=== PATIENT | male | born 1990 | race Caucasian/White ===

== ENCOUNTER 2019-12-12 03:17 | Emergency (ER) | payer MEDICAID ==
[~2019-12-12] VITALS: Ht 182.9 cm; Wt 72.7 kg
[2019-12-12 03:24] VITALS: BP 152/79
--- NOTE | 2019-12-12 03:51 | NUR ---
PT TO [facility]IVE [facility] HE REPORTS HE HAS BEEN STAYING THERE.
== END 2019-12-12 03:57 | disposition home or self-care (01) ==
LOC: EDBD 03:17 → ER 03:17
DX: F41.9 Anxiety disorder, unspecified (principal); Z59.0 Homelessness
CPT/HCPCS: 99283

== ENCOUNTER 2019-12-13 10:15 | Emergency (ER) | payer MEDICAID ==
[~2019-12-13] VITALS: Ht 182.9 cm; Wt 76.1 kg
[2019-12-13] MEDS ORDERED: LORazepam 2 mg/ml vial IV ONE (10:30)
[2019-12-13] MEDS ORDERED: haloperidol lactate 5mg/ml inj IM ONE (10:30)
[2019-12-13] MEDS ORDERED: normal saline 1000ML IV soln IVB ONE (10:30)
[2019-12-13 10:43] LABS: CLARITY,URINE SLIGHTLY CLOUDY (Clear); COLOR,URINE YELLOW (Yellow); GLUCOSE, URINE NEGATIVE (Neg); KETONES,URINE NEGATIVE (Neg); LEUKOCYTE ESTERASE ,URINE NEGATIVE (Neg); NITRITES, URINE NEGATIVE (Neg); OCCULT BLOOD,URINE LARGE (Neg); PROTEIN,URINE TRACE mg/dl (Neg)
[2019-12-13 10:48] LABS: UA COLLECTION TYPE VOIDED
[2019-12-13 10:53] LABS: URINE AMPHETAMINE SCREEN POSITIVE (Neg); URINE BARBITUATE SCREEN NEGATIVE (Neg); URINE BENZODIAZEPINES SCREEN NEGATIVE (Neg); URINE CANNABINOID SCREEN NEGATIVE (Neg); URINE COCAINE SCREEN NEGATIVE (Neg); URINE METHADONE SCREEN NEGATIVE (Neg); URINE OPIATE SCREEN POSITIVE (Neg); URINE PHENCYCLIDINE SCREEN NEGATIVE (Neg)
[2019-12-13 10:55] LABS: RBC,URINE TNTC /HPF (0-2)
[2019-12-13 10:56] LABS: BACTERIA,URINE NONE SEEN /HPF (Neg); MUCUS STRANDS FEW /LPF (Neg); SQUAMOUS EPITHELIAL CELL,UR FEW /LPF (FEW)
[2019-12-13 11:04] LABS: BASOPHILS % (AUTO) 0.4 % (0-1); EOSINOPHILS # (AUTO) 0.1 X10'3 (0-0.9); EOSINOPHILS % (AUTO) 0.6 % (0-6); HEMATOCRIT 35.5 % (42.0-52.0); HEMOGLOBIN 11.5 g/dl (14.0-17.9); LYMPHOCYTES # (AUTO) 3.1 X10'3 (1.1-4.8); LYMPHOCYTES % (AUTO) 33.1 % (21-51); MEAN CORPUSCULAR HEMOGLOBIN 23.4 PG (27.0-31.0); MEAN CORPUSCULAR HGB CONC 32.3 g/dL (33.0-36.5); MEAN CORPUSCULAR VOLUME 72.3 FL (78-98); MEAN PLATELET VOLUME 7.6 FL (7.4-10.4); MONOCYTES # (AUTO) 1.3 X10'3 (0-0.9); NEUTROPHILS # (AUTO) 4.8 X10'3 (1.8-7.7); NEUTROPHILS % (AUTO) 51.9 % (42-75); PLATELET COUNT 313 X10'3 (140-440); RED BLOOD COUNT 4.91 X10'6 (4.70-6.10); WHITE BLOOD COUNT 9.4 X10'3 (4.5-11.0)
[2019-12-13 11:22] LABS: ALANINE AMINOTRANSFERASE 572 U/L (12-78); ALBUMIN 3.8 G/DL (3.4-5.0); ALBUMIN/GLOBULIN RATIO 0.8 (1.1-1.5); ALKALINE PHOSPHATASE 132 IU/L (46-116); ANION GAP 11 (8-16); ASPARTATE AMINO TRANSFERASE 241 U/L (10-37); BILIRUBIN,TOTAL 0.5 MG/DL (0.1-1.0); BLOOD UREA NITROGEN 15 MG/DL (7-18); BUN/CREATININE RATIO 17.4 (5.4-32.0); CHLORIDE 104 MMOL/L (99-107); CREATININE 0.86 MG/DL (0.60-1.10); POTASSIUM 3.1 MMOL/L (3.5-5.1); SODIUM 140 MMOL/L (135-145); TOTAL CARBON DIOXIDE 25.5 MMOL/L (24-32); TOTAL PROTEIN 8.7 G/DL (6.4-8.2); eGFR > 90 ML/MIN
[2019-12-13 11:24] LABS: ETHANOL 0.044 GM/DL (0.0-0.010); GLUCOSE 159 MG/DL (70-104)
[2019-12-13 11:31] LABS: ANISOCYTOSIS 2+; MICROCYTOSIS 1+; PLATELET ESTIMATE NORMAL
--- NOTE | 2019-12-13 12:05 | NUR ---
Received pt on gurmaria guadalupe from main ER. Pt moved to bed 20 with assisted transfer. Pt asleep w/o distress and slept through lunch. Lunch tray saved for him.
--- NOTE | 2019-12-13 12:05 | NUR ---
FAXED [facility]
--- NOTE | 2019-12-13 15:00 | NUR ---
Pt remains asleep in bed w/o distress.
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
--- NOTE | 2019-12-13 20:42 | NUR ---
[facility] is here to interview the patient.
--- NOTE | 2019-12-13 20:49 | NUR ---
The patient was too drowsy to participate in the assessment with [facility]. They will see him again tomorrow
--- NOTE | 2019-12-13 22:39 | NUR ---
The patient appears to be sleeping
--- NOTE | 2019-12-14 00:11 | NUR ---
The patient appears to be sleeping
--- NOTE | 2019-12-14 01:43 | NUR ---
The patient appears to be sleeping
--- NOTE | 2019-12-14 04:07 | NUR ---
The patient appears to be sleeping
--- NOTE | 2019-12-14 04:56 | NUR ---
The patient appears to be sleeping
[2019-12-14 05:59] VITALS: BP 108/58
--- NOTE | 2019-12-14 06:40 | NUR ---
Patient sleeping on left side. No distress observed. Continue to monitor.
--- NOTE | 2019-12-14 07:38 | NUR ---
BRIAN Sidhu speaking with patient. Continue to monitor.
[2019-12-14] MEDS ORDERED: potassium Cl 20 mEq SR tablet PO SCH (08:00)
[2019-12-14 08:08] LABS: ALANINE AMINOTRANSFERASE 500 U/L (12-78); ALBUMIN 3.2 G/DL (3.4-5.0); ALBUMIN/GLOBULIN RATIO 0.7 (1.1-1.5); ALKALINE PHOSPHATASE 107 IU/L (46-116); ANION GAP 5 (8-16); ASPARTATE AMINO TRANSFERASE 242 U/L (10-37); BILIRUBIN,TOTAL 0.7 MG/DL (0.1-1.0); BLOOD UREA NITROGEN 10 MG/DL (7-18); BUN/CREATININE RATIO 14.5 (5.4-32.0); CALCIUM 8.6 MG/DL (8.5-10.1); CHLORIDE 107 MMOL/L (99-107); CREATININE 0.69 MG/DL (0.60-1.10); POTASSIUM 3.6 MMOL/L (3.5-5.1); SODIUM 141 MMOL/L (135-145); TOTAL CARBON DIOXIDE 28.7 MMOL/L (24-32); TOTAL PROTEIN 7.6 G/DL (6.4-8.2); eGFR > 90 ML/MIN
[2019-12-14 08:09] LABS: GLUCOSE 102 MG/DL (70-104)
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
--- NOTE | 2019-12-14 09:32 | NUR ---
Breaking primary RN, pt is awaiting transport
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
== END 2019-12-14 09:54 | disposition home or self-care (01) ==
LOC: ER 10:15
DX: R45.851 Suicidal ideations (principal); F22 Delusional disorders; R74.0 Nonspecific elevation of levels of transaminase and lactic acid dehydrogenase [LDH]; E86.0 Dehydration; E87.6 Hypokalemia; F41.9 Anxiety disorder, unspecified; F31.9 Bipolar disorder, unspecified; Z59.0 Homelessness
CPT/HCPCS: 36415; 80053; 80305; 80320; 81001; 84443; 85025; 96361; 96372; 96374; 99284; J1630; J2060; J7030